=== PATIENT | male | born 1950 | race Two or more races ===

== ENCOUNTER → 2017-10-10 | Outpatient (CLI) | payer OTHER | END | disposition home or self-care (01) | LOC: RAD 14:57 | DX: I73.9 Peripheral vascular disease, unspecified (principal) | CPT/HCPCS: 73502 ==

== ENCOUNTER → 2017-12-25 | Outpatient (CLI) | payer OTHER | END | disposition home or self-care (01) | LOC: RAD 17:04 | DX: R60.0 Localized edema (principal) | CPT/HCPCS: 93971 ==

== ENCOUNTER 2018-01-29 15:11 | Inpatient (IN) | payer OTHER ==
[2018-01-30 01:50] LABS: POC GLUCOSE 222 mg/dL (70-99)
[2018-01-30 04:48] LABS: ADD MAN DIFF? NO
[2018-01-30 05:03] LABS: BASO # 0.1 x10^3/uL (0.0-0.2); BASO % 1 % (0-3); EOS # 0.2 x10^3/uL (0.0-0.7); EOS % 3 % (0-3); HEMATOCRIT 33.5 % (39.0-53.0); HEMOGLOBIN 11.1 g/dL (13.0-17.5); LYMPH # 2.7 x10^3/uL (1.0-4.8); LYMPH % 30 % (24-48); MEAN CORPUSCULAR HEMOGLOBIN 26 pg (25-35); MEAN CORPUSCULAR HGB CONC 33 g/dL (31-37); MEAN CORPUSCULAR VOLUME 79 fL (79-100); MONO # 0.4 x10^3/uL (0.0-1.1); MONO % 5 % (0-9); NEUT # 5.5 x10^3uL (1.8-7.7); NEUT % 61 % (31-73); PLATELET COUNT 185 x10^3/uL (140-400); RED BLOOD COUNT 4.22 x10^6/uL (4.30-5.70); RED CELL DISTRIBUTION WIDTH 15.2 % (11.5-14.5); WHITE BLOOD COUNT 8.9 x10^3/uL (4.0-11.0)
[2018-01-30 05:31] LABS: ALBUMIN 1.9 g/dL (3.4-5.0); ALBUMIN/GLOBULIN RATIO 0.5 (1.0-1.7); ALK PHOS 65 U/L (46-116); ALT (SGPT) 17 U/L (16-63); ANION GAP 7 (6-14); AST (SGOT) 17 U/L (15-37); BLOOD UREA NITROGEN 34 mg/dL (8-26); BUN/CREATININE RATIO 9 (6-20); CALCIUM 8.8 mg/dL (8.5-10.1); CARBON DIOXIDE 24 mmol/L (21-32); CHLORIDE 111 mmol/L (98-107); GFR 15.1; GLUCOSE 144 mg/dL (70-99); POTASSIUM 4.6 mmol/L (3.5-5.1); SODIUM 142 mmol/L (136-145); TOTAL BILIRUBIN 0.3 mg/dL (0.2-1.0); TOTAL PROTEIN 5.8 g/dL (6.4-8.2)
[2018-01-30 07:30] LABS: POC GLUCOSE 141 mg/dL (70-99)
[2018-01-30 11:11] LABS: POC GLUCOSE 221 mg/dL (70-99)
[2018-01-30] MEDS ORDERED: oxyCODONE/APAP 5/325 1 TAB TABLET PO (11:30)
[2018-01-30] MEDS: INSULIN LISPRO 300 UNITS/3 ML INSULN.PEN. SQ ×3 (12:00→17:12)
[2018-01-30] MEDS: POLYETHYLENE GLYCOL 3350 17 GM PACKET. PO (12:28)
[2018-01-30] MEDS: PANTOPRAZOLE 40 MG TABLET.DR. PO (12:28)
[2018-01-30] MEDS: CYCLOBENZAPRINE 10 MG TABLET. PO ×2 (12:29→22:13)
[2018-01-30] MEDS ORDERED: ACETAMINOPHEN 325 MG TABLET. PO (12:30)
[2018-01-30 16:58] LABS: POC GLUCOSE 161 mg/dL (70-99)
[2018-01-30] MEDS: CARVEDILOL 6.25 MG TABLET. PO (17:10)
[2018-01-30 20:42] LABS: POC GLUCOSE 135 mg/dL (70-99)
[2018-01-30] MEDS: SIMVASTATIN 20 MG TABLET PO (22:13)
[2018-01-30] MEDS: INSULIN GLARGINE 300 UNITS/3 ML INSULN.PEN. SQ (22:18)
[2018-01-31 08:01] LABS: POC GLUCOSE 127 mg/dL (70-99)
[2018-01-31] MEDS: POLYETHYLENE GLYCOL 3350 17 GM PACKET. PO (09:00)
[2018-01-31] MEDS: PANTOPRAZOLE 40 MG TABLET.DR. PO (09:01)
[2018-01-31] MEDS: ASPIRIN CHEWABLE 81 MG TABLET. PO (09:02)
[2018-01-31] MEDS: CYCLOBENZAPRINE 10 MG TABLET. PO ×2 (09:02→21:06)
[2018-01-31] MEDS: CARVEDILOL 6.25 MG TABLET. PO ×2 (09:02→17:50)
[2018-01-31] MEDS: INSULIN LISPRO 300 UNITS/3 ML INSULN.PEN. SQ ×3 (09:08→17:55)
[2018-01-31 10:45] LABS: ANION GAP 9 (6-14); BLOOD UREA NITROGEN 32 mg/dL (8-26); CALCIUM 8.1 mg/dL (8.5-10.1); CARBON DIOXIDE 24 mmol/L (21-32); CHLORIDE 108 mmol/L (98-107); CREATININE 4.1 mg/dL (0.7-1.3); GFR 14.7; GLUCOSE 234 mg/dL (70-99); POTASSIUM 4.9 mmol/L (3.5-5.1); SODIUM 141 mmol/L (136-145)
[2018-01-31 11:48] LABS: POC GLUCOSE 111 mg/dL (70-99)
[2018-01-31 17:20] LABS: POC GLUCOSE 198 mg/dL (70-99)
[2018-01-31 17:21] LABS: CREATININE 24 HR UR 1147 mg/24 hr (1000-2000); CREATININE, UR 48.8 mg/dL (Not Estab.)
[2018-01-31 20:54] LABS: POC GLUCOSE 271 mg/dL (70-99)
[2018-01-31] MEDS: SIMVASTATIN 20 MG TABLET PO (21:06)
[2018-01-31] MEDS: INSULIN GLARGINE 300 UNITS/3 ML INSULN.PEN. SQ (21:11)
[2018-02-01] MEDS: INSULIN LISPRO 300 UNITS/3 ML INSULN.PEN. SQ ×2 (08:00→12:03)
[2018-02-01] MEDS: PANTOPRAZOLE 40 MG TABLET.DR. PO (08:57)
[2018-02-01] MEDS: CARVEDILOL 6.25 MG TABLET. PO (08:58)
[2018-02-01] MEDS: ASPIRIN CHEWABLE 81 MG TABLET. PO (08:58)
[2018-02-01] MEDS: CYCLOBENZAPRINE 10 MG TABLET. PO (08:58)
[2018-02-01] MEDS: POLYETHYLENE GLYCOL 3350 17 GM PACKET. PO (08:59)
[2018-02-01 11:06] LABS: POC GLUCOSE 215 mg/dL (70-99)
[2018-02-01 21:11] LABS: POC GLUCOSE 109 mg/dL (70-99)
[2018-02-04 09:21] LABS: ALBUMIN UR 60.9 % (.); ALPHA 1 UR 5.8 % (.); ALPHA 2 UR 9.4 % (.); BETA UR 13.2 % (.); GAMMA UR 10.7 % (.); M-SPIKE, % Not Observed % (Not Observed); PROTEIN 24 UR 16159 mg/24 hr (30-150); PROTEIN UR 687.6 mg/dL (Not Estab.)
== END 2018-02-01 12:45 | disposition home or self-care (01) | DRG 682 ==
LOC: 5 SOUTH 15:11
PROVIDERS: Family Medicine
DX: I12.0 Hypertensive chronic kidney disease with stage 5 chronic kidney disease or end stage renal disease (principal); N18.6 End stage renal disease; N17.9 Acute kidney failure, unspecified; E11.22 Type 2 diabetes mellitus with diabetic chronic kidney disease; E11.65 Type 2 diabetes mellitus with hyperglycemia; I16.1 Hypertensive emergency; E78.00 Pure hypercholesterolemia, unspecified; G89.29 Other chronic pain; I25.10 Atherosclerotic heart disease of native coronary artery without angina pectoris; N28.89 Other specified disorders of kidney and ureter; Z83.3 Family history of diabetes mellitus; Z90.5 Acquired absence of kidney; Z91.19 Patient's noncompliance with other medical treatment and regimen
CPT/HCPCS: 36415; 71046; 74176; 74181; 76700; 80048; 80053; 82570; 82962; 84166; 85025; J1815